=== PATIENT | male | born 1950 | race Caucasian/White ===

== ENCOUNTER 2017-11-02 11:02 | Inpatient (IN) | payer OTHER ==
[2017-11-02 11:11] VITALS: BMI 28.0
[2017-11-02] MEDS ORDERED: SODIUM CHLORIDE 0.9% 1000 ML INFUS.BAG IV STA (11:33)
[2017-11-02] MEDS ORDERED: ACETAMINOPHEN 1000 MG/100 ML VIAL (NON FORMULARY) IVPB ONE (11:33)
[2017-11-02] MEDS ORDERED: ACETAMINOPHEN INJECTION 100 ML IVPB ONE (12:01)
[2017-11-02] MEDS ORDERED: MEROPENEM 1 GM in DEXTROSE 5%-WATER 100 ML IVPB ONE (12:14)
[2017-11-02 12:15] LABS: BASO % 0.2 % (0-2.0); EOS % 0.2 % (0-4.5); HEMATOCRIT 43.1 % (35.4-49); HEMOGLOBIN 14.3 GM/dL (11.7-16.9); LYMPH % 4.7 % (8-40); MCH 28.3 pg (25.7-33.7); MCHC 33.3 g/dl (32.0-35.9); MEAN CELL VOLUME 85.2 fl (80-96); MEAN PLT VOLUME 9.6 fl (7.5-11.1); MONO % 6.6 % (3.8-10.2); NEUT % 88.3 % (42.8-82.8); PLATELET COUNT 162 K/MM3 (134-434); RBC 5.06 M/mm3 (4.00-5.60); RDW 13.6 % (11.9-15.9); WHITE BLOOD COUNT 11.9 K/mm3 (4.0-10.0)
[2017-11-02 12:20] LABS: URINE APPEARANCE Clear; URINE BILIRUBIN Negative (<2.0 mg/dL); URINE COLOR Yellow; URINE GLUCOSE (UA) Negative (NEGATIVE); URINE KETONE Negative (NEGATIVE); URINE LEUK ESTERASE Moderate (NEGATIVE); URINE NITRITE Negative (NEGATIVE); URINE PROTEIN Trace (NEGATIVE); URINE UROBILINOGEN 0.2 mg/dL (0.2-1.0)
--- NOTE | 2017-11-02 12:26 | PDOC ---
History of Present Illness <Pao Olson - Last Filed: 11/02/17 13:35> - General History Source: Patient Exam Limitations: No Limitations - History of Present Illness Initial Comments: 11/02/17 12:23 Patient is a 67M with history of prostate cancer s/p surgical removal here today complaining of 1 week of dysuria with 1 day of fevers/chills and left sided back pain. Patient's daughter reports rigors this morning which caused them to call an ambulance. Patient's daughter reports a history of ESBL UTI sensitive to meropenem and imipenem. Results were obtained from [facility] Urology fellow on-call at [phone]. Patient's daughter reports that the patient had a near syncopal episode from the rigors. <Robbi Harrington - Last Filed: 11/02/17 18:46> - General Chief Complaint: SIRS, Suspected/Possible Stated Complaint: FEVER Time Seen by Provider: 11/02/17 11:25 Past History <Pao Olson Satinder - Last Filed: 11/02/17 13:35> - Past Medical History Cancer: Yes (PROSTATE) COPD: No - Surgical History Abdominal Surgery: Yes (PROSTATECTOMY 08/25/17) - Suicide/Smoking/Psychosocial Hx Smoking History: Unknown if ever smoked <Robbi Harrington - Last Filed: 11/02/17 18:46> - Past Medical History Allergies/Adverse Reactions: Allergies Allergy/AdvReac Type Severity Reaction Status Date / Time No Known Allergies Allergy Verified 11/02/17 11:09 Home Medications: Ambulatory Orders Sildenafil Citrate [Sildenafil] 20 mg PO ASDIR 11/02/17 Review of Systems - Review of Systems Comments:: 11/02/17 12:32 GENERAL/CONSTITUTIONAL: +fever +chills. No weakness. HEAD, EYES, EARS, NOSE AND THROAT: No change in vision. No sore throat. CARDIOVASCULAR: No chest pain or shortness of breath RESPIRATORY: No cough, wheezing, or hemoptysis. GASTROINTESTINAL: +nausea, no vomiting, diarrhea or constipation. GENITOURINARY: +dysuria, +frequency MUSCULOSKELETAL: No joint or muscle swelling or pain. No neck pain, +left side pain SKIN: No rash NEUROLOGIC: No headache, vertigo, loss of consciousness, or change in strength/ sensation. ENDOCRINE: No increased thirst. No abnormal weight change HEMATOLOGIC/LYMPHATIC: No anemia, easy bleeding, or history of blood clots. ALLERGIC/IMMUNOLOGIC: No hives or skin allergy. <Robbi Harrington - Last Filed: 11/02/17 18:46> *Physical Exam - Vital Signs Last Vital Signs Temp Pulse Resp BP Pulse Ox 102.6 F H 96 H 18 142/72 99 11/02/17 11:45 11/02/17 12:51 11/02/17 12:51 11/02/17 12:51 11/02/17 12:51 <Pao Olson - Last Filed: 11/02/17 13:35> - Vital Signs Last Vital Signs Temp Pulse Resp BP Pulse Ox 102.6 F H 89 18 139/59 100 11/02/17 11:45 11/02/17 11:45 11/02/17 11:45 11/02/17 11:45 11/02/17 11:45 - Physical Exam Comments: 11/02/17 12:36 GENERAL: Awake, alert, and fully oriented, in no acute distress HEAD: No signs of trauma, normocephalic, atraumatic EYES: PERRLA, EOMI, sclera anicteric, conjunctiva clear ENT: Auricles normal inspection, hearing grossly normal, nares patent, oropharynx clear without exudates. Moist mucosa NECK: Normal ROM, supple, no lymphadenopathy, JVD, or masses LUNGS: No distress, speaks full sentences, clear to auscultation bilaterally HEART: Regular rate and rhythm, normal S1 and S2, no murmurs, rubs or gallops, peripheral pulses normal and equal bilaterally. ABDOMEN: Soft, +suprapubic tenderness, +l cva tenderness, normoactive bowel sounds. No guarding, no rebound. No masses EXTREMITIES: Normal inspection, Normal range of motion, no edema. No clubbing or cyanosis. NEUROLOGICAL: Cranial nerves II through XII grossly intact. Normal speech, no focal sensorimotor deficits SKIN: Warm, Dry, normal turgor, no rashes or lesions noted. <Robbi Harrington - Last Filed: 11/02/17 18:46> ED Treatment Course - LABORATORY CBC & Chemistry Diagram: 11/02/17 11:45 11/02/17 11:45 - ADDITIONAL ORDERS Additional order review: Laboratory Results 11/02/17 11/02/17 11/02/17 12:10 12:05 11:45 PT with INR INR PTT (Actin FS) Sodium Potassium Chloride Carbon Dioxide Anion Gap BUN Creatinine Creat Clearance w eGFR Random Glucose Lactic Acid 2.1 H Calcium Total Bilirubin AST ALT Alkaline Phosphatase Troponin I < 0.02 Total Protein Albumin Urine Color Yellow Urine Appearance Clear Urine pH 6.0 Ur Specific [place] 1.015 Urine Protein Trace Urine Glucose (UA) Negative Urine Ketones Negative Urine Blood Small Urine Nitrite Negative Urine Bilirubin Negative Urine Urobilinogen 0.2 Ur Leukocyte Esterase Moderate 11/02/17 11/02/17 11:45 11:45 PT with INR 12.10 INR 1.07 PTT (Actin FS) 26.4 Sodium 143 Potassium 3.9 Chloride 108 H Carbon Dioxide 23 Anion Gap 12 BUN 17 Creatinine 0.9 Creat Clearance w eGFR > 60 Random Glucose 141 H Lactic Acid Calcium 8.1 L Total Bilirubin 0.7 AST 16 ALT 36 Alkaline Phosphatase 111 Troponin I Total Protein 6.6 Albumin 3.2 L Urine Color Urine Appearance Urine pH Ur Specific [place] Urine Protein Urine Glucose (UA) Urine Ketones Urine Blood Urine Nitrite Urine Bilirubin Urine Urobilinogen Ur Leukocyte Esterase 11/02/17 11:45 RBC 5.06 MCV 85.2 MCHC 33.3 RDW 13.6 MPV 9.6 Neutrophils % 88.3 H Lymphocytes % 4.7 L Monocytes % 6.6 Eosinophils % 0.2 Basophils % 0.2 - RADIOLOGY Radiology Studies Ordered: Category Date Time Status CHEST X-RAY PORTABLE* [RAD] Stat Radiology 11/02/17 11:33 Completed - Medications Given in the ED: ED Medications Discontinued Medications Generic Name Dose Route Start Last Admin Trade Name Bandar PRN Reason Stop Dose Admin Acetaminophen 1,000 mg 11/02/17 11:33 11/02/17 11:45 Ofirmev Injection - IVPB 11/02/17 11:34 1,000 mg ONCE ONE Administration Morphine Sulfate 4 mg 11/02/17 12:47 11/02/17 13:15 Morphine Injection - IVPUSH 11/02/17 12:48 4 mg ONCE ONE Administration Sodium Chloride 2,150 ml 11/02/17 11:33 11/02/17 11:45 Normal Saline - 30 ml/kg (2150 ml) 11/02/17 11:34 2,150 ml IV Administration ONCE STA <Pao Olson - Last Filed: 11/02/17 13:35> - LABORATORY CBC & Chemistry Diagram: 11/02/17 11:45 11/02/17 11:45 - ADDITIONAL ORDERS Additional order review: 11/02/17 11:45 RBC 5.06 MCV 85.2 MCHC 33.3 RDW 13.6 MPV 9.6 Neutrophils % 88.3 H Lymphocytes % 4.7 L Monocytes % 6.6 Eosinophils % 0.2 Basophils % 0.2 <Robbi Harrington - Last Filed: 11/02/17 18:46> Medical Decision Making - Medical Decision Making 11/02/17 12:37 Patient is 67M with history of prostate cancer here today with suprapubic abdominal pain, dysuria, and left sided cva tenderness. Strongly suspect pyelonephritis. Septic workup initiated, HR here was taken after 1L of fluids from EMS. Given tylenol. Will treat with meropenem. UA+, CBC shows leukocytosis. CMP reassuring. Admitted by Dr Olson for pyelonephritis. <Robbi Harrington - Last Filed: 11/02/17 18:46> *DC/Admit/Observation/Transfer - Discharge Dispostion Decision to Admit order: Yes Decision to Admit order Date/Time: Decision to Admit Order Category Date Time Status Decision to Admit to Hospital Routine Admission 11/02/17 12:25 Active <Pao Olson - Last Filed: 11/02/17 13:35> <Robbi Harrington - Last Filed: 11/02/17 18:46> Diagnosis at time of Disposition: Sepsis, Pyelonephritis - Discharge Dispostion Condition at time of disposition: Guarded
[2017-11-02 12:31] LABS: INR 1.07 (0.83-1.09); PROTHROMBIN TIME (PATIENT) 12.1 SEC (9.7-13.0)
[2017-11-02 12:34] LABS: ACTIVATED PTT 26.4 SECONDS (25.2-36.5)
[2017-11-02 12:42] LABS: ALBUMIN 3.2 g/dl (3.4-5.0); ALK PHOS 111 U/L (45-117); ANION GAP 12 MMOL/L (8-16); BILIRUBIN,TOTAL 0.7 mg/dL (0.2-1.0); BLOOD UREA NITROGEN 17 mg/dL (7-18); CALCIUM 8.1 mg/dL (8.5-10.1); CHLORIDE 108 mmol/L (98-107); CO2 23 mmol/L (21-32); CREATININE 0.9 mg/dL (0.55-1.3); GLUCOSE,RANDOM 141 mg/dL (74-106); POTASSIUM 3.9 mmol/L (3.5-5.1); SGOT/AST 16 U/L (15-37); SGPT/ALT 36 U/L (13-61); SODIUM 143 mmol/L (136-145); TOT PROT 6.6 g/dl (6.4-8.2)
[2017-11-02] MEDS ORDERED: morphine CARPU-JECT 4 MG/1 ML DISP.SYRIN IVPUSH ONE (12:47)
--- NOTE | 2017-11-02 12:48 | PDOC ---
Attending Attestation - Resident Resident Name: Robbi Harrington - ED Attending Attestation I have performed the following: I have examined & evaluated the patient, The case was reviewed & discussed with the resident, I agree w/resident's findings & plan - HPI HPI: 11/02/17 13:33 Girish 67 YOM with a significant past medical history of ESBL UTI, prostate CA s /p resection, who presents to the emergency department with, 1 week of dysuria. The patient also endorses 1 day of fever and chills and pain radiating to his left side of his back. Last BM this morning, normal. He denies any recent headache or dizziness. He denies any recent nausea, vomit, diarrhea or constipation. He denies any recent chest pain or shortness of breath. He denies any recent frequency, urgency or hematuria. Allergies: NKA Past surgical history: Cholecystectomy and prostate resection. Primary Care Physician: Dr. Robbi Calles - Physicial Exam PE: 11/02/17 13:33 NAD, well appearing, MMM, nl conjunctiva, anicteric; neck supple. lungs clear, + mild tachycardia. Abdomen tympanic. Suprapubic tenderness. Left sided CVA tenderness. BOWENS x4, no focal neuro deficits. No peripheral edema. normal color for ethnicity, WWP. 11/02/17 13:33 - Medical Decision Making 11/02/17 12:52 I, Pao Olson MD, attest that this document has been prepared under my direction and personally reviewed by me in its entirety. I further attest, that it accurately reflects all work, treatment, procedures and medical decision -making performed by me Girish [place]oto YOM with H/o ESBL UTI, prostate CA s/p radical resection in August 2017 presenting with progressive dysuria x 1 week, today with fever and chills, increasing back and abdominal pain. Last UTI 1 month ago, which was ESBL. Vital signs reviewed, notable for fever 101.5, and mild tachycardia. Infection Plan: CBC, CMP, UA, urine cx, blood cx, lactic acid, ECG, trop, CXR. resuscitative IVF, antipyretics, analgesia, IV abx with Meropenem given prior sensitivities with ESBL Prior notes reviewed, including admissions, discharges and consultations. laboratory results and imaging reviewed, basic labs and lytes wnl, notable for + UA with WBCs and leuk esterase, clinically correlating with acute pyelonephritis. f/u blood and urine culture lactic mildly elevated 2.1, given fluids and will recheck after treatment. EKG normal sinus rhythm, no interval abnormalities, narrow QRS, ST and T wave segments and morphology normal. Nonspecific T wave abnormalities Dispo: Admit for suspected pyelonephritis.. Discussed results and management plan with pt and family member at bedside, agree with impression and plan 11/02/17 13:34 Heart Score/ECG Review - ECG Impressions Comment:: 11/02/17 12:53 EKG normal sinus rhythm at 93 bpm, no interval abnormalities, narrow QRS, ST and T wave segments and morphology normal. Nonspecific T wave abnormalities
[2017-11-02] MEDS ORDERED: morphine SULFATE 4 MG/ML VIAL ONE (13:04)
[2017-11-02] MEDS ORDERED: MORPHINE SULFATE 2 MG/ML VIAL IVPUSH PRN (13:47)
--- NOTE | 2017-11-02 14:29 | HP ---
CHIEF COMPLAINT:Pyelonephritis PCP: Robbi Calles HISTORY OF PRESENT ILLNESS: 67M with PMH of prostate Ca s/p radical prostatectomy in August of this year no chemo or radiation. Patient is considered cured. The Patient is Wallisian speaking and presents with his 2 daughter and 2 son-in-laws with a chief complaint of pyelonephritis. One of his daughters who is giving the history and doing the translating states she is a piano teacher. She states The patient had a UTI september 21, 2017 and was treated with one week of macrobid and symptoms resolved. Culture from [facility] [place] shows >100,000K CFU of E. Coli Sensitivities from daughter who called the fellow from [facility] [place] show it is ESBL sensitive to Imipenem, Meropenem, Amikacin and Macrobid. Patient's daughter states her father started having suprapubic pain about 1 week ago but he didn't tell anyone and has now progressed to back pain. Her father started having shaking chills this morning so she called the ambulabce. She states he started to get very anxious and started to have numbness and tingling in his fingers which quickly resolved. They endorse fever chills urinary urgency and increased frequency with back and suprapubic pain. During the H&P patient started complaining of chest pain. Vitals remained stable while on the monitor. He denies radiation or diaphoresis or palpitations. STAT EKG done which was unchanged from prior and WNL. He denies nausea vomiting cough shortness of breath or diarrhea. ER course was notable for: (1)Labs UA UCx BCx IVF (2)EKG (3)CXR Recent Travel:Denies PAST MEDICAL HISTORY:Prostate Ca PAST SURGICAL HISTORY:Radical prostatectomy cholecystectomy multiple skin lesion removals Social History: Smoking:Denies Alcohol:Denies Drugs: Denies Allergies No Known Allergies Allergy (Verified 11/02/17 11:09) HOME MEDICATIONS: Home Medications Medication Instructions Recorded Sildenafil Citrate [Sildenafil] 20 mg PO ASDIR 11/02/17 REVIEW OF SYSTEMS CONSTITUTIONAL: Absent: diaphoresis, malaise, loss of appetite, weight change Present: fever , chills, generalized weakness HEENT: Absent: rhinorrhea, nasal congestion, throat pain, throat swelling, difficulty swallowing, mouth swelling, ear pain, eye pain, visual changes CARDIOVASCULAR: Absent: syncope, palpitations, irregular heart rate, lightheadedness, peripheral edema Present:chest pain RESPIRATORY: Absent: cough, shortness of breath, orthopnea, wheezing, stridor, hemoptysis Present:decreased exercise tolerance GASTROINTESTINAL: Absent: abdominal pain, nausea, vomiting, diarrhea, constipation, melena, hematochezia Present: abdominal distention GENITOURINARY: Absent: hesitancy, hematuria, genital pain Present:dysuria, frequency, urgency , flank pain MUSCULOSKELETAL: Absent: myalgia, arthralgia, joint swelling, back pain, neck pain SKIN: Absent: rash, itching, pallor HEMATOLOGIC/IMMUNOLOGIC: Absent: easy bleeding, easy bruising, lymphadenopathy, frequent infections ENDOCRINE: Absent: unexplained weight gain, unexplained weight loss, heat intolerance, cold intolerance NEUROLOGIC: Absent: headache, focal weakness or paresthesias, dizziness, unsteady gait, seizure, mental status changes, bladder or bowel incontinence PSYCHIATRIC: Absent: anxiety, depression, suicidal or homicidal ideation, hallucinations. PHYSICAL EXAMINATION Vital Signs - 24 hr 11/02/17 11/02/17 11/02/17 11:05 11:45 12:30 Temperature 101.5 F H 102.6 F H Pulse Rate 95 H Pulse Rate [ 89 93 H Right] Respiratory 20 18 20 Rate Blood Pressure 134/79 Blood Pressure 139/59 139/77 [Right] O2 Sat by Pulse 99 100 93 L Oximetry (%) 11/02/17 11/02/17 12:51 14:14 Temperature 101.9 F H Pulse Rate Pulse Rate [ 96 H 88 Right] Respiratory 18 19 Rate Blood Pressure Blood Pressure 142/72 135/74 [Right] O2 Sat by Pulse 99 100 Oximetry (%) GENERAL: Awake, alert, and fully oriented, in no acute distress. HEAD: Normal with no signs of trauma. EYES: Pupils equal, round and reactive to light, extraocular movements intact, sclera anicteric EARS, NOSE, THROAT: Dry mucous membranes. NECK: no JVD appreciated LUNGS: clear on the right. Left side sound louder and has faint crackles at the bases HEART: Regular rate and rhythm, normal S1 and S2 soft 2/6 murmur LUSB ABDOMEN: Soft, nontender abdomen, normoactive bowel sounds. mildly Distended. Suprapubic tenderness. MUSCULOSKELETAL: bilateral CVA tenderness L>R UPPER EXTREMITIES: warm, well-perfused. No peripheral edema. LOWER EXTREMITIES: warm, well-perfused. No calf tenderness. No peripheral edema. NEUROLOGICAL: Cranial nerves II-XII intact. SKIN: Hot Laboratory Results - last 24 hr 11/02/17 11/02/17 11/02/17 11:45 11:45 11:45 WBC 11.9 H RBC 5.06 Hgb 14.3 Hct 43.1 MCV 85.2 MCH 28.3 MCHC 33.3 RDW 13.6 Plt Count 162 MPV 9.6 Absolute Neuts (auto) 10.5 H Neutrophils % 88.3 H Lymphocytes % 4.7 L Monocytes % 6.6 Eosinophils % 0.2 Basophils % 0.2 Nucleated RBC % 0 PT with INR 12.10 INR 1.07 PTT (Actin FS) 26.4 Sodium 143 Potassium 3.9 Chloride 108 H Carbon Dioxide 23 Anion Gap 12 BUN 17 Creatinine 0.9 Creat Clearance w eGFR > 60 Random Glucose 141 H Lactic Acid Calcium 8.1 L Total Bilirubin 0.7 AST 16 ALT 36 Alkaline Phosphatase 111 Troponin I Total Protein 6.6 Albumin 3.2 L Urine Color Urine Appearance Urine pH Ur Specific [place] Urine Protein Urine Glucose (UA) Urine Ketones Urine Blood Urine Nitrite Urine Bilirubin Urine Urobilinogen Ur Leukocyte Esterase 11/02/17 11/02/17 11/02/17 11:45 12:05 12:10 WBC RBC Hgb Hct MCV MCH MCHC RDW Plt Count MPV Absolute Neuts (auto) Neutrophils % Lymphocytes % Monocytes % Eosinophils % Basophils % Nucleated RBC % PT with INR INR PTT (Actin FS) Sodium Potassium Chloride Carbon Dioxide Anion Gap BUN Creatinine Creat Clearance w eGFR Random Glucose Lactic Acid 2.1 H Calcium Total Bilirubin AST ALT Alkaline Phosphatase Troponin I < 0.02 Total Protein Albumin Urine Color Yellow Urine Appearance Clear Urine pH 6.0 Ur Specific [place] 1.015 Urine Protein Trace Urine Glucose (UA) Negative Urine Ketones Negative Urine Blood Small Urine Nitrite Negative Urine Bilirubin Negative Urine Urobilinogen 0.2 Ur Leukocyte Esterase Moderate 11/02/17 13:00 WBC RBC Hgb Hct MCV MCH MCHC RDW Plt Count MPV Absolute Neuts (auto) Neutrophils % Lymphocytes % Monocytes % Eosinophils % Basophils % Nucleated RBC % PT with INR INR PTT (Actin FS) Sodium Potassium Chloride Carbon Dioxide Anion Gap BUN Creatinine Creat Clearance w eGFR Random Glucose Lactic Acid 1.4 Calcium Total Bilirubin AST ALT Alkaline Phosphatase Troponin I Total Protein Albumin Urine Color Urine Appearance Urine pH Ur Specific [place] Urine Protein Urine Glucose (UA) Urine Ketones Urine Blood Urine Nitrite Urine Bilirubin Urine Urobilinogen Ur Leukocyte Esterase EKG: NSR CXR: Clear ASSESSMENT/PLAN: 67M with history of prostate Ca s/p radical prostatectomy presents with symptomatic UTI and pyelonephritis. sepsis secondary to Pyelonephritis: UA moderate LE given history of ESBL one month ago treated with macrobid and his symptoms or urgency frequency suprapubic pain and back pain with CVA tenderness suprapubic tenderness fevers and chills will have to treat for ESBL UTI UCx sent will follow BCx sent to rule out bacteremia will follow Will start the patient on meropenem consult ID-spoke to Dr. Kolb antipyretics pain control IVF patient dehydrated with dark urine. Made 200ml urine after 2500ml crystalloids Atypical chest pain: STAT EKG did not show any acute changes compared to one done a few hours prior on admission to the ER Will trend troponins Patient not hypoxic saturation of 77% likely from SpO2 sensor not being on the finger properly as per nurse saturation came back to 100% within a few seconds if patient desaturates will have to consider CTA to rule out PE given his history Protonix Lactic acidosis: 2.1 repeated and now 1.4 with IVF Prostate Ca s/p radical prostatectomy considered cured per daughter can follow up with his doctors at [facility] [place] Erectile Dysfunction: as a complication of radiacl prostatectomy hold sildenafil for now FEN: NS @ 100ml/hr No electrolyte issues will trend regular diet PPx: HSQ/SCDs Protonix PT consult Case discussed with Dr. Sorensen Visit type - Emergency Visit Emergency Visit: Yes ED Registration Date: 11/02/17 Care time: The patient presented to the Emergency Department on the above date and was hospitalized for further evaluation of their emergent condition. - New Patient This patient is new to me today: Yes Date on this admission: 11/02/17 - Critical Care Critical Care patient: No Hospitalist Screening - Colonoscopy Questionnaire Colonoscopy Questionnaire: Colonoscopy Questionnaire - Patient: 50 - 75 years old and never had a screening colonoscopy: No History of colon or rectal polyps, or CA: No History of IBD, Crohn's disease or UC: No History of abdominal radiation therapy as a child: No - Relative: 1 with colon or rectal CA, or polyps at age 60 or younger: No Colon or rectal CA diagnosed at age 45 or younger: No Multiple relatives with colon or rectal CA: No - Outcome: Screening Result: Negative Screen
[2017-11-02] MEDS: SODIUM CHLORIDE 1,000 ML IV SCH (14:37)
[2017-11-02] MEDS ORDERED: ACETAMINOPHEN 500 MG TABLET (FP) PO PRN (14:43)
--- NOTE | 2017-11-02 14:52 | PN ---
Teaching Attending Note Name of Resident: Thomas Busch ATTENDING PHYSICIAN STATEMENT I saw and evaluated the patient. I reviewed the resident's note and discussed the case with the resident. I agree with the resident's findings and plan as documented. SUBJECTIVE: This is a 67 year old man with a history of prostate cancer, prostatectomy who comes to the ED complaining of suprapubic and back pain, fever , chills, urinary frequency. He was recently treated with Macrobid a UTI. Urine culture grew ESBL (+) E. coli. He developed suprapubic pain about 1 week ago which has worsened and now is also in his back. This morning, he had shaking chills, so family called EMS. OBJECTIVE: Vital Signs Period Temp Pulse Resp BP Sys/Mitchell Pulse Ox Last 24 Hr 101.5 F-102.6 F 88-96 18-20 134-142/59-79 93-100 HEART: S1S2, tachycardic LUNGS: Clear ABDOMEN: Soft, non-tender, mild distention, normal BS, (+) left CVA tenderness EXTREMITIES: No edema Laboratory Tests 11/02/17 11/02/17 11/02/17 11:45 11:45 11:45 WBC 11.9 H RBC 5.06 Hgb 14.3 Hct 43.1 MCV 85.2 MCH 28.3 MCHC 33.3 RDW 13.6 Plt Count 162 MPV 9.6 Absolute Neuts (auto) 10.5 H Neutrophils % 88.3 H Lymphocytes % 4.7 L Monocytes % 6.6 Eosinophils % 0.2 Basophils % 0.2 Nucleated RBC % 0 PT with INR 12.10 INR 1.07 PTT (Actin FS) 26.4 Sodium 143 Potassium 3.9 Chloride 108 H Carbon Dioxide 23 Anion Gap 12 BUN 17 Creatinine 0.9 Creat Clearance w eGFR > 60 Random Glucose 141 H Lactic Acid Calcium 8.1 L Total Bilirubin 0.7 AST 16 ALT 36 Alkaline Phosphatase 111 Troponin I Total Protein 6.6 Albumin 3.2 L Urine Color Urine Appearance Urine pH Ur Specific [place] Urine Protein Urine Glucose (UA) Urine Ketones Urine Blood Urine Nitrite Urine Bilirubin Urine Urobilinogen Ur Leukocyte Esterase 11/02/17 11/02/17 11/02/17 11:45 12:05 12:10 WBC RBC Hgb Hct MCV MCH MCHC RDW Plt Count MPV Absolute Neuts (auto) Neutrophils % Lymphocytes % Monocytes % Eosinophils % Basophils % Nucleated RBC % PT with INR INR PTT (Actin FS) Sodium Potassium Chloride Carbon Dioxide Anion Gap BUN Creatinine Creat Clearance w eGFR Random Glucose Lactic Acid 2.1 H Calcium Total Bilirubin AST ALT Alkaline Phosphatase Troponin I < 0.02 Total Protein Albumin Urine Color Yellow Urine Appearance Clear Urine pH 6.0 Ur Specific [place] 1.015 Urine Protein Trace Urine Glucose (UA) Negative Urine Ketones Negative Urine Blood Small Urine Nitrite Negative Urine Bilirubin Negative Urine Urobilinogen 0.2 Ur Leukocyte Esterase Moderate 11/02/17 13:00 WBC RBC Hgb Hct MCV MCH MCHC RDW Plt Count MPV Absolute Neuts (auto) Neutrophils % Lymphocytes % Monocytes % Eosinophils % Basophils % Nucleated RBC % PT with INR INR PTT (Actin FS) Sodium Potassium Chloride Carbon Dioxide Anion Gap BUN Creatinine Creat Clearance w eGFR Random Glucose Lactic Acid 1.4 Calcium Total Bilirubin AST ALT Alkaline Phosphatase Troponin I Total Protein Albumin Urine Color Urine Appearance Urine pH Ur Specific [place] Urine Protein Urine Glucose (UA) Urine Ketones Urine Blood Urine Nitrite Urine Bilirubin Urine Urobilinogen Ur Leukocyte Esterase Home Medications Medication Instructions Recorded Sildenafil Citrate [Sildenafil] 20 mg PO ASDIR 11/02/17 ASSESSMENT AND PLAN: This is a 67 year old man with a history of prostate cancer, prostatectomy, recent UTI who presented to the ED with suprapubic and back pain, fever, chills , urinary frequency. 1. Sepsis secondary to acute pyelonephritis - Recently treated for ESBL (+) E. coli UTI with Macrobid - Merrem given in ED - IV fluid - Lactic acid improved with IV fluid - Follow up urine, blood cultures - ID consult 2. Prostate cancer, history of radical prostatectomy
--- NOTE | 2017-11-02 15:54 | PN ---
Progress Note (short form) - Note Progress Note: ID consult dictated imp/reccd 67 year old man recent radical prostatectomy in August, s/p esbl uti in September treated with 7 days of Macrobid now with one week of suprapubic pain and decreased urine outpt- fevers with chills and rigors today sepsis secondary to UTI febrile with +UA in ED no cough no other comorbidities history of nephrolithiasis 10 years ago NKDA agree with plan to continue IVF continue meropenem would obtain bladder/renal sonogram to r/o obstruction continue contact isolation d/w hospitalist Problem List - Problems (1) Sepsis Code(s): A41.9 - SEPSIS, UNSPECIFIED ORGANISM (2) UTI (urinary tract infection) Code(s): N39.0 - URINARY TRACT INFECTION, SITE NOT SPECIFIED (3) History of ESBL E. coli infection Code(s): Z86.19 - PERSONAL HISTORY OF OTHER INFECTIOUS AND PARASITIC DISEASES (4) H/O prostatectomy Code(s): Z90.79 - ACQUIRED ABSENCE OF OTHER GENITAL ORGAN(S)
[2017-11-02] MEDS ORDERED: MEROPENEM 1 GM in DEXTROSE 5%-WATER - 100 ML IVPB SCH (18:00)
[2017-11-02] MEDS: MEROPENEM 1 GM in DEXTROSE 5%-WATER 100 ML IVPB SCH (18:56)
--- NOTE | 2017-11-02 20:52 | CONS ---
DATE OF CONSULTATION: DATE OF DICTATION: 11/02/2017 INFECTIOUS DISEASE CONSULTATION REQUESTING PHYSICIAN: Hospitalist Service CONSULTING PHYSICIAN: Nicolette Traore M.D. HISTORY OF PRESENT ILLNESS: This is a 67-year-old man who just underwent a radical prostatectomy in August of this year at [facility]. He had no history of UTI prior to that. In September of this year, he developed an E. coli ESBL UTI for which he was treated for 7 days with Macrobid. His daughter called [facility] and got sensitivities for us, and it is sensitive to imipenem, meropenem, amikacin and Macrobid. About a week ago, he started having suprapubic pain that he did not tell anyone about. He started taking Advil at home for his discomfort. His daughter thinks he had apparently had diminished urine output because he was wearing Depends for incontinence and he told her yesterday that he did not think he needed to wear them anymore. They deny any nausea or vomiting. They say he has been eating okay. He has no headache. He has no chest pain. He has no cough. He has no shortness of breath or abdominal pain. He had a fever in the emergency room and was started on meropenem after cultures were obtained, given his prior history. There is no history of any recent travel, given all this illness. They have no pets. He alternates his living time between his two daughters. His medical history is notable for prostate cancer, surgical history for the radical prostatectomy and cholecystectomy. SOCIAL HISTORY: There is no history of any cigarette or substance use. FAMILY HISTORY: He is one of 24 children. He is originally from . There is a family history of diabetes. ALLERGIES: He has no known drug allergies. MEDICATION: The daughter reports to me that he takes no medications, although sildenafil has been listed in the chart as a medication he is taking. REVIEW OF SYSTEMS: Notable for fevers, chills, weakness, diminished urine output. He has apparently been having low back pain and some abdominal distention. He has not had any flank pain. PHYSICAL EXAMINATION: VITAL SIGNS: T-max is 102.6, currently 101.9. Pulse of 88, blood pressure 135/74, respiratory rate 19. He is saturating 100%. He has gotten 2 L of fluid and the daughter reports he has made about 500 mL of urine. GENERAL: He is awake and alert, in no acute distress. HEENT: Normocephalic. Eyes are anicteric. NECK: Supple. He has no thrush, adenopathy or pharyngitis. LUNGS: Clear to auscultation. HEART: Regular rate and rhythm. He has a 2/6 systolic ejection murmur. ABDOMEN: Soft, mildly distended, nontender. He has no palpable bladder. He has no CVA tenderness. He apparently had some morphine in the ER and now has no low back pain. EXTREMITIES: Without edema. He has no rash. LABORATORY: White count is 11.9, hemoglobin 14.3, platelets 162, INR 1. BUN and creatinine are 17 and 0.9. LFTs are normal. Urinalysis is negative. Blood and urine cultures are pending. Chest x-ray is negative for infiltrate. IMPRESSION: In summary, this is a 66-year-old man who had a prostatectomy in August with an extended-spectrum beta-lactamases urinary tract infection in September, now admitted with sepsis secondary to urinary tract infection. He has lactic acidosis as well. He is febrile with a positive urinalysis. No cough, no other comorbidities. History of nephrolithiasis. Would agree with plan to continue fluids, continue meropenem. Would obtain a bladder renal sonogram to rule out obstruction and continue contact isolation. The case was discussed with the daughters who were at the bedside. The case was discussed with Dr. Busch, the hospitalist. We have ordered a renal bladder sonogram. Will follow the patient with you. His problem list includes sepsis, UTI, a history of ESBL E. coli, and a history of prostatectomy. NICOLETTE TRAORE M.D. [id number]
[2017-11-02] MEDS: HEPARIN NA (PORCINE) 5,000 UNITS/ML 1ML VIAL SQ SCH (21:42)
[2017-11-03] MEDS: MEROPENEM 1 GM in DEXTROSE 5%-WATER 100 ML IVPB SCH ×3 (01:14→17:28)
[2017-11-03] MEDS: HEPARIN NA (PORCINE) 5,000 UNITS/ML 1ML VIAL SQ SCH ×3 (06:27→22:17)
[2017-11-03 08:12] LABS: BASO % 0.4 % (0-2.0); EOS % 0.3 % (0-4.5); HEMATOCRIT 39.9 % (35.4-49); HEMOGLOBIN 13.2 GM/dL (11.7-16.9); LYMPH % 11.2 % (8-40); MCH 28.3 pg (25.7-33.7); MCHC 33.2 g/dl (32.0-35.9); MEAN CELL VOLUME 85.2 fl (80-96); MEAN PLT VOLUME 9.7 fl (7.5-11.1); MONO % 8.9 % (3.8-10.2); NEUT % 79.2 % (42.8-82.8); PLATELET COUNT 138 K/MM3 (134-434); RBC 4.68 M/mm3 (4.00-5.60); RDW 13.7 % (11.9-15.9); WHITE BLOOD COUNT 14.6 K/mm3 (4.0-10.0)
--- NOTE | 2017-11-03 08:26 | PN ---
Progress Note, Physician - Current Medication List Current Medications: Active Medications Acetaminophen (Tylenol -) 1,000 mg PO Q6H PRN PRN Reason: PAIN OR FEVER Heparin Sodium (Porcine) (Heparin -) 5,000 unit SQ TID [facility] Last Admin: 11/03/17 06:27 Dose: 5,000 unit Sodium Chloride (Normal Saline -) 1,000 mls @ 100 mls/hr IV ASDIR [facility] Last Admin: 11/02/17 14:37 Dose: 100 mls/hr Meropenem 1 gm/ Dextrose 100 mls @ 200 mls/hr IVPB Q8H-IV [facility] Last Admin: 11/03/17 01:14 Dose: 200 mls/hr Morphine Sulfate (Morphine Sulfate) 2 mg IVPUSH Q4H PRN PRN Reason: PAIN LEVEL 6-10 Pneumococcal 13-Valent Conj Vacc (Prevnar 13 Syringe -) 0.5 ml IM .ONCE ONE Stop: 11/03/17 10:01 - Objective Vital Signs: Vital Signs Temperature 98.2 F 11/03/17 07:27 Pulse Rate 75 11/03/17 07:27 Respiratory Rate 18 11/02/17 21:45 Blood Pressure 119/68 11/03/17 07:27 O2 Sat by Pulse Oximetry (%) 97 11/02/17 21:46 Constitutional: Yes: Well Nourished, No Distress, Calm Eyes: Yes: WNL, Conjunctiva Clear, EOM Intact HENT: Yes: WNL, Atraumatic, Normocephalic Neck: Yes: WNL, Supple, Trachea Midline Cardiovascular: Yes: WNL, Regular Rate and Rhythm, S1, S2 Respiratory: Yes: Regular, CTA Bilaterally Gastrointestinal: Yes: WNL, Normal Bowel Sounds, Soft Musculoskeletal: Yes: WNL Extremities: Yes: WNL Labs: INR, PTT INR 1.07 (0.83-1.09) 11/02/17 11:45 Assessment/Plan 1. SIRS with Sepsis secondary to acute pyelonephritis with ESBL - Merrem given in ED - IV fluid - Follow up urine, blood cultures - ID consult 2. Prostate cancer, history of radical prostatectomy
[2017-11-03 08:55] LABS: ALBUMIN 2.7 g/dl (3.4-5.0); ANION GAP 8 MMOL/L (8-16); BLOOD UREA NITROGEN 14 mg/dL (7-18); CALCIUM 7.8 mg/dL (8.5-10.1); CHLORIDE 109 mmol/L (98-107); CO2 24 mmol/L (21-32); GLUCOSE,RANDOM 87 mg/dL (74-106); MAGNESIUM 1.9 mg/dL (1.8-2.4); POTASSIUM 3.9 mmol/L (3.5-5.1); SODIUM 141 mmol/L (136-145)
[2017-11-03 08:59] LABS: ALK PHOS 183 U/L (45-117); BILIRUBIN,TOTAL 0.7 mg/dL (0.2-1.0); CREATININE 0.8 mg/dL (0.55-1.3); PHOSPHOROUS 2.7 mg/dL (2.5-4.9); SGOT/AST 196 U/L (15-37); SGPT/ALT 272 U/L (13-61); TOT PROT 5.9 g/dl (6.4-8.2)
[2017-11-03] MEDS ORDERED: PNEUMOC 13-VAL CONJ-DIP CRM/PF 0.5 ML DISP.SYRIN IM ONE (10:00)
--- NOTE | 2017-11-03 13:27 | PN ---
Progress Note, Physician History of Present Illness: OOB in chair No complaints No c/o pain No fever/ chills Temps down today BC (-) Urine c/s LF - Current Medication List Current Medications: Active Medications Acetaminophen (Tylenol -) 1,000 mg PO Q6H PRN PRN Reason: PAIN OR FEVER Heparin Sodium (Porcine) (Heparin -) 5,000 unit SQ TID [facility] Last Admin: 11/03/17 06:27 Dose: 5,000 unit Sodium Chloride (Normal Saline -) 1,000 mls @ 100 mls/hr IV ASDIR [facility] Last Admin: 11/02/17 14:37 Dose: 100 mls/hr Meropenem 1 gm/ Dextrose 100 mls @ 200 mls/hr IVPB Q8H-IV [facility] Last Admin: 11/03/17 09:44 Dose: 200 mls/hr Morphine Sulfate (Morphine Sulfate) 2 mg IVPUSH Q4H PRN PRN Reason: PAIN LEVEL 6-10 - Objective Vital Signs: Vital Signs Temperature 98.2 F 11/03/17 07:27 Pulse Rate 75 11/03/17 07:27 Respiratory Rate 18 11/02/17 21:45 Blood Pressure 119/68 11/03/17 07:27 O2 Sat by Pulse Oximetry (%) 97 11/02/17 21:46 Constitutional: Yes: No Distress Eyes: Yes: Conjunctiva Clear Cardiovascular: Yes: Regular Rate and Rhythm Respiratory: Yes: CTA Bilaterally Gastrointestinal: Yes: Soft. No: Tenderness Labs: CBC, BMP 11/03/17 07:00 11/03/17 07:00 INR, PTT INR 1.07 (0.83-1.09) 11/02/17 11:45 Assessment/Plan UTI LF Hx ESBL S/P prostatectomy Await c/s Continue meropenem
[2017-11-03] MEDS: SODIUM CHLORIDE 1,000 ML IV SCH (14:47)
[2017-11-03] MEDS ORDERED: PT OWN MED DRAWER 7, Y5N ONE (17:25)
[2017-11-04] MEDS ORDERED: PT OWN MED DRAWER 7, Y5N ONE (01:14)
[2017-11-04] MEDS: MEROPENEM 1 GM in DEXTROSE 5%-WATER 100 ML IVPB SCH ×3 (01:20→17:09)
[2017-11-04] MEDS: SODIUM CHLORIDE 1,000 ML IV SCH ×2 (06:12→17:09)
[2017-11-04] MEDS: HEPARIN NA (PORCINE) 5,000 UNITS/ML 1ML VIAL SQ SCH ×3 (06:13→22:10)
[2017-11-04 07:45] LABS: BASO % 0.4 % (0-2.0); EOS % 1.4 % (0-4.5); HEMATOCRIT 40.1 % (35.4-49); HEMOGLOBIN 13.5 GM/dL (11.7-16.9); LYMPH % 13.5 % (8-40); MCH 28.4 pg (25.7-33.7); MCHC 33.8 g/dl (32.0-35.9); MEAN CELL VOLUME 84.3 fl (80-96); MEAN PLT VOLUME 9.6 fl (7.5-11.1); MONO % 10.3 % (3.8-10.2); NEUT % 74.4 % (42.8-82.8); PLATELET COUNT 168 K/MM3 (134-434); RBC 4.76 M/mm3 (4.00-5.60); RDW 13.8 % (11.9-15.9); WHITE BLOOD COUNT 10.7 K/mm3 (4.0-10.0)
[2017-11-04 08:30] LABS: ALBUMIN 2.8 g/dl (3.4-5.0); ANION GAP 7 MMOL/L (8-16); BLOOD UREA NITROGEN 11 mg/dL (7-18); CALCIUM 8.1 mg/dL (8.5-10.1); CHLORIDE 110 mmol/L (98-107); CO2 26 mmol/L (21-32); CREATININE 0.8 mg/dL (0.55-1.3); GLUCOSE,RANDOM 107 mg/dL (74-106); POTASSIUM 4.1 mmol/L (3.5-5.1); SGOT/AST 68 U/L (15-37); SGPT/ALT 165 U/L (13-61); SODIUM 143 mmol/L (136-145)
[2017-11-04 08:32] LABS: ALK PHOS 153 U/L (45-117); BILIRUBIN,TOTAL 0.4 mg/dL (0.2-1.0); TOT PROT 5.9 g/dl (6.4-8.2)
--- NOTE | 2017-11-04 09:27 | CONSULT ---
Consult - text type - Consultation Consultation Note: Renal Consult for Renal Cysts This is a 67 year old gentleman with Hx of prostate ca s/p prostate resection w/o radiation or chemotherapy, diverticulosis who presented UTI/ Pylonephritis and found to have multilple cysts on both kidneys. History obtained from daughter. Denies having been told that he had cysts in the past. No gross hematuira. No flank pain. No CP, SOB, N/V/D, Fever, chills at the present time. PMhx: as above Allergies: NKDA Family Hx: NC Social hx: no T/A/D ROS: as per HPI, all other pertinent ros negative Home Medications Medication Instructions Recorded Sildenafil Citrate [Sildenafil] 20 mg PO ASDIR 11/02/17 Vital Signs Temperature 98.2 F 11/04/17 08:59 Pulse Rate 63 11/04/17 08:59 Respiratory Rate 20 11/04/17 08:59 Blood Pressure 129/79 11/04/17 08:59 O2 Sat by Pulse Oximetry (%) 96 11/04/17 08:59 Intake & Output 11/01/17 11/02/17 11/03/17 11/04/17 23:59 23:59 23:59 23:59 Intake Total 3000 1700 1300 Output Total 200 Balance 2800 1700 1300 Weight 71.668 kg NAD awake and alert Neck supple, no JVD RRR, no M/R CTA, no rales soft NT/ND no flank pain No LE edmea, clubbing or cyanosis CBC, BMP 11/04/17 07:20 11/04/17 07:20 Current Medications Acetaminophen (Tylenol -) 1,000 mg PO Q6H PRN PRN Reason: PAIN OR FEVER Heparin Sodium (Porcine) (Heparin -) 5,000 unit SQ TID [facility] Last Admin: 11/04/17 06:13 Dose: 5,000 unit Sodium Chloride (Normal Saline -) 1,000 mls @ 100 mls/hr IV ASDIR [facility] Last Admin: 11/04/17 06:12 Dose: 100 mls/hr Meropenem 1 gm/ Dextrose 100 mls @ 200 mls/hr IVPB Q8H-IV [facility] Last Admin: 11/04/17 09:24 Dose: 200 mls/hr Morphine Sulfate (Morphine Sulfate) 2 mg IVPUSH Q4H PRN PRN Reason: PAIN LEVEL 6-10 67 year old gentleman with Hx of prostate ca s/p prostate resection w/ o radiation or chemotherapy, diverticulosis who presented UTI/Pylonephritis and found to have multilple cysts on both kidneys. #Acquired Renal Cystic Disease #UTI/Cystitis #Prostate Ca s/p recent resection US showed Cysts with septations, CT done offical read pending but images show multiple cysts b/l largest on left but cysts appear not to have blood supply within them and regular borders making them most likely simple cyts. Will await offical read by radiology. Continue Abx as per ID, f/u cultures Supportive care Spoke with daughter over the phone Thank you Mor Frias DO
--- NOTE | 2017-11-04 10:26 | PN ---
Progress Note, Physician Chief Complaint: Remained afebrile, no c/o nausea or vomiting - Current Medication List Current Medications: Active Medications Acetaminophen (Tylenol -) 1,000 mg PO Q6H PRN PRN Reason: PAIN OR FEVER Heparin Sodium (Porcine) (Heparin -) 5,000 unit SQ TID [facility] Last Admin: 11/04/17 06:13 Dose: 5,000 unit Sodium Chloride (Normal Saline -) 1,000 mls @ 100 mls/hr IV ASDIR [facility] Last Admin: 11/04/17 06:12 Dose: 100 mls/hr Meropenem 1 gm/ Dextrose 100 mls @ 200 mls/hr IVPB Q8H-IV [facility] Last Admin: 11/04/17 09:24 Dose: 200 mls/hr Morphine Sulfate (Morphine Sulfate) 2 mg IVPUSH Q4H PRN PRN Reason: PAIN LEVEL 6-10 - Objective Vital Signs: Vital Signs Temperature 98.2 F 11/04/17 08:59 Pulse Rate 63 11/04/17 08:59 Respiratory Rate 20 11/04/17 08:59 Blood Pressure 129/79 11/04/17 08:59 O2 Sat by Pulse Oximetry (%) 96 11/04/17 08:59 GENERAL: Young man No Distress, remained afebrile HEENT: MM moist, Conjunctiva Clear, EOM Intact Neck: Supple, Trachea Midline Cardiovascular: Regular Rate and Rhythm, S1, S2 no m/g/r Respiratory: Regular, CTA Bilaterally Gastrointestinal: No suprapubic pain , Normal Bowel Sounds, Soft Musculoskeletal & Extremities: No Edema feet no calf tenderness , Pulses + no CVA tenderness Neurological: Alert, Oriented non focal Labs: CBC, BMP 11/04/17 07:20 11/04/17 07:20 INR, PTT INR 1.07 (0.83-1.09) 11/02/17 11:45 Microbiology 11/02/17 12:05 Blood Culture - Preliminary Blood - Peripheral Venous NO GROWTH OBTAINED AFTER 24 HOURS, INCUBATION TO CONTINUE FOR 4 DAYS. 11/02/17 11:45 Blood Culture - Preliminary Blood - Peripheral Venous NO GROWTH OBTAINED AFTER 24 HOURS, INCUBATION TO CONTINUE FOR 4 DAYS. 11/02/17 12:10 Urine Culture - Preliminary Urine - Urine Clean Catch Lactose Fermenting Neg Bacilli Problem List - Problems (1) Sepsis Assessment/Plan: Due to acute Pyelonephritis H/O ESBL E Colli , ID on the board cont Meropenem U Culture grew Fermenters GNB sensitivity is [facility] Code(s): A41.9 - SEPSIS, UNSPECIFIED ORGANISM (2) Pyelonephritis Assessment/Plan: Acute cont Merpenem F/U final sensitivity prelim Grew GNB inventory auditor Code(s): N12 - TUBULO-INTERSTITIAL NEPHRITIS, NOT SPCF ACUTE OR CHRONIC (3) CA of prostate Assessment/Plan: S/P resection and RT in remission Code(s): C61 - MALIGNANT NEOPLASM OF PROSTATE (4) Renal cyst Assessment/Plan: No active intervention F/U clinically as out patient. Code(s): N28.1 - CYST OF KIDNEY, ACQUIRED
--- NOTE | 2017-11-04 22:05 | EKG ---
Test Reason : Blood Pressure : / mmHG Vent. Rate : 092 BPM Atrial Rate : 092 BPM P-R Int : 134 ms QRS Dur : 078 ms QT Int : 342 ms P-R-T Axes : 040 -05 016 degrees QTc Int : 422 ms NORMAL SINUS RHYTHM MINIMAL VOLTAGE CRITERIA FOR LVH, MAY BE NORMAL VARIANT BORDERLINE ECG NO PREVIOUS ECGS AVAILABLE Confirmed by SHAYNA CORDERO MD ([id number]) on 11/04/2017 10:04:53 PM Referred By: Confirmed By:SHAYNA CORDERO MD
[2017-11-05] MEDS ORDERED: PT OWN MED DRAWER 7, Y5N ONE (02:44)
[2017-11-05] MEDS: MEROPENEM 1 GM in DEXTROSE 5%-WATER 100 ML IVPB SCH ×2 (02:58→09:12)
[2017-11-05] MEDS: HEPARIN NA (PORCINE) 5,000 UNITS/ML 1ML VIAL SQ SCH ×2 (06:56→13:16)
[2017-11-05 07:05] LABS: BASO % 0.3 % (0-2.0); EOS % 2.8 % (0-4.5); HEMATOCRIT 40.1 % (35.4-49); HEMOGLOBIN 13.3 GM/dL (11.7-16.9); LYMPH % 19.5 % (8-40); MCH 28.1 pg (25.7-33.7); MCHC 33.1 g/dl (32.0-35.9); MEAN CELL VOLUME 84.9 fl (80-96); MEAN PLT VOLUME 9.5 fl (7.5-11.1); MONO % 14.1 % (3.8-10.2); NEUT % 63.3 % (42.8-82.8); PLATELET COUNT 190 K/MM3 (134-434); RBC 4.72 M/mm3 (4.00-5.60); RDW 13.3 % (11.9-15.9); WHITE BLOOD COUNT 7.1 K/mm3 (4.0-10.0)
[2017-11-05 07:19] LABS: ANION GAP 7 MMOL/L (8-16); BLOOD UREA NITROGEN 12 mg/dL (7-18); CALCIUM 8.5 mg/dL (8.5-10.1); CHLORIDE 105 mmol/L (98-107); CO2 30 mmol/L (21-32); CREATININE 0.9 mg/dL (0.55-1.3); GLUCOSE,RANDOM 104 mg/dL (74-106); POTASSIUM 4.6 mmol/L (3.5-5.1); SODIUM 142 mmol/L (136-145)
[2017-11-05 08:40] VITALS: BP 140/83; PULSE 59; TEMP 98.5
[2017-11-05] MEDS ORDERED: ERTAPENEM SODIUM 1 GM/50 ML PRE-DOCKED IVPB SCH (10:15)
[2017-11-05] MEDS ORDERED: ERTAPENEM SODIUM 1 GM in SODIUM CHLORIDE 50 ML IVPB SCH (10:30)
--- NOTE | 2017-11-05 10:57 | PN ---
Progress Note (short form) - Note Progress Note: doing well no fevers since Sunday night Vital Signs Period Temp Pulse Resp BP Sys/Mitchell Pulse Ox Last 24 Hr 98.2 F-99.4 F 58-66 20-20 134-140/75-83 96-99 cor-rrr lungs clar abd soft,nt ext no edema CBC, BMP 11/05/17 06:10 11/05/17 06:10 Microbiology 11/02/17 12:05 Blood - Peripheral Venous Blood Culture - Preliminary NO GROWTH OBTAINED AFTER 72 HOURS, INCUBATION TO CONTINUE FOR 2 DAYS. 11/02/17 11:45 Blood - Peripheral Venous Blood Culture - Preliminary NO GROWTH OBTAINED AFTER 72 HOURS, INCUBATION TO CONTINUE FOR 2 DAYS. 11/02/17 12:10 Urine - Urine Clean Catch Urine Culture - Final Escherichia Coli Esbl [employer] a/p ecoli esbl UTI day #3 antibiotics switch to ertapenem plan to complete 10 days via picc line plese call back if needed d/w dr hong Problem List - Problems (1) Sepsis Code(s): A41.9 - SEPSIS, UNSPECIFIED ORGANISM (2) UTI (urinary tract infection) Code(s): N39.0 - URINARY TRACT INFECTION, SITE NOT SPECIFIED (3) History of ESBL E. coli infection Code(s): Z86.19 - PERSONAL HISTORY OF OTHER INFECTIOUS AND PARASITIC DISEASES (4) H/O prostatectomy Code(s): Z90.79 - ACQUIRED ABSENCE OF OTHER GENITAL ORGAN(S)
--- NOTE | 2017-11-05 11:41 | PN ---
Progress Note (short form) - Note Progress Note: Renal follow up for Renal Cysts Pt seen and examined at the bedside awake and alert no acute complaints no sob, cp, abd pain, N/V/D Vital Signs Temperature 98.5 F 11/05/17 08:40 Pulse Rate 59 L 11/05/17 08:40 Respiratory Rate 20 11/05/17 08:40 Blood Pressure 140/83 11/05/17 08:40 O2 Sat by Pulse Oximetry (%) 99 11/05/17 09:00 Intake & Output 11/02/17 11/03/17 11/04/17 11/05/17 23:59 23:59 23:59 23:59 Intake Total 3000 1700 3300 1300 Output Total 200 Balance 2800 1700 3300 1300 Weight 71.668 kg NAD No LE edema CBC, BMP 11/05/17 06:10 11/05/17 06:10 Current Medications Acetaminophen (Tylenol -) 1,000 mg PO Q6H PRN PRN Reason: PAIN OR FEVER Heparin Sodium (Porcine) (Heparin -) 5,000 unit SQ TID [facility] Last Admin: 11/05/17 06:56 Dose: 5,000 unit Sodium Chloride (Normal Saline -) 1,000 mls @ 100 mls/hr IV ASDIR [facility] Last Admin: 11/04/17 17:09 Dose: 100 mls/hr Ertapenem 1 gm/ Sodium (Chloride) 50 mls @ 100 mls/hr IVPB DAILY [facility] Last Admin: 11/05/17 11:20 Dose: 100 mls/hr Morphine Sulfate (Morphine Sulfate) 2 mg IVPUSH Q4H PRN PRN Reason: PAIN LEVEL 6-10 67 year old gentleman with Hx of prostate ca s/p prostate resection w/ o radiation or chemotherapy, diverticulosis who presented UTI/Pylonephritis and found to have multilple cysts on both kidneys. #Acquired Renal Cystic Disease #UTI/Cystitis #Prostate Ca s/p recent resection Official read of CT shows no masses and simple cysts no debris or perinephric fluid seen as well continue Abx as per ID will need outpatient surveillance of renal cysts renal function is normal Will sign off at this time pleae re-consult as needed Thank you Mor Frias DO
[2017-11-05] MEDS ORDERED: CALCIUM CARBONATE 650 MG TABLET PO PRN (11:47)
[2017-11-05] MEDS ORDERED: CALCIUM (OYSTER SHELL) 500 MG TABLET (FP) PO SCH (12:00)
[2017-11-05] MEDS ORDERED: CALCIUM CARBONATE 650 MG TABLET PO SCH (12:45)
[2017-11-05] MEDS ORDERED: PICC LINE 8 ML FLUSH PROTOCOL IVPUSH PRN (14:31)
--- NOTE | 2017-11-05 14:52 | DS ---
Physical Exam: SUBJECTIVE: Patient seen and examined at bedside no complaints spoke to both daughters today both at bedside OBJECTIVE: Vital Signs Period Temp Pulse Resp BP Sys/Mitchell Pulse Ox Last 24 Hr 98.2 F-99.4 F 58-66 20-20 134-140/75-83 96-99 PHYSICAL EXAM GENERAL: Awake, alert, and fully oriented, in no acute distress. HEAD: Normal with no signs of trauma. EYES: Pupils equal, round and reactive to light, extraocular movements intact, sclera anicteric EARS, NOSE, THROAT: moist mucous membranes. NECK: no JVD appreciated LUNGS: clear on the right. Left side sound louder and has faint crackles at the bases HEART: Regular rate and rhythm, normal S1 and S2 soft 2/6 murmur LUSB ABDOMEN: Soft, nontender abdomen, normoactive bowel sounds. no suprapubic tenderness MUSCULOSKELETAL: no CVa tenderness UPPER EXTREMITIES: warm, well-perfused. No peripheral edema. LOWER EXTREMITIES: warm, well-perfused. No calf tenderness. No peripheral edema. NEUROLOGICAL: Cranial nerves II-XII intact. SKIN: Warm, dry LABS Laboratory Results - last 24 hr 11/05/17 11/05/17 06:10 06:10 WBC 7.1 RBC 4.72 Hgb 13.3 Hct 40.1 MCV 84.9 MCH 28.1 MCHC 33.1 RDW 13.3 Plt Count 190 MPV 9.5 Absolute Neuts (auto) 4.5 Neutrophils % 63.3 Lymphocytes % 19.5 D Monocytes % 14.1 H Eosinophils % 2.8 D Basophils % 0.3 Nucleated RBC % 0 Sodium 142 Potassium 4.6 Chloride 105 Carbon Dioxide 30 Anion Gap 7 L BUN 12 Creatinine 0.9 Creat Clearance w eGFR > 60 Random Glucose 104 Calcium 8.5 HOSPITAL COURSE: Date of Admission:11/02/17 Date of Discharge: 11/05/17 67M with history of prostate Ca s/p radiacl prostatectomy in august of this year presents to the ER with pyelonephritis found to be ESBL. Per patient and his family he had a UTI with ESBL a month prior to presentation and was treated with Macrobid. He then started having suprapubic and back pain which progressed to dyruria fevers and chills. He was seen by ID, treated with IV meropenem, and transitioned to ertapenem. UCx grew ESBL E. coli. Will go home with a PICC line and Ertapenem 1gm daily for 7 days. Minutes to complete discharge: 35 Discharge Summary Reason For Visit: PYELONEPHRITIS Current Active Problems CA of prostate (Acute) H/O prostatectomy (Acute) History of ESBL E. coli infection (Acute) Pyelonephritis (Acute) Renal cyst (Acute) Sepsis (Acute) UTI (urinary tract infection) (Acute) Condition: Improved - Instructions Diet, Activity, Other Instructions: you were found to have a urinary tract infection and you were treated for pyelonephritis with IV Antibiotics. you were treated with Meropenem then converted to Ertapenem Your urine showed ESBL E.Coli If you have worsening symptoms fever or chills go to the nearest emergency room You should have labs done in 1 week and results sent to your primary care doctor. It was a pleasure caring for you Please follow up with your primary care doctor within [address] Thomas Busch Referrals: ON STAFF,NOT [Primary Care Provider] - 1 Week Disposition: VNS/HOME HEALTH CARE - Home Medications Comprehensive Discharge Medication List: Ambulatory Orders Sildenafil Citrate [Sildenafil] 20 mg PO ASDIR 11/02/17 Ertapenem Sodium [Ertapenem] 1 gm IJ DAILY #7 vial 11/05/17 Miscellaneous Drug Not In Syst [Outpatient Lab Test] 1 each ASDIR #1 misc This patient is new to me today: No Emergency Visit: Yes ED Registration Date: 11/02/17 Care time: The patient presented to the Emergency Department on the above date and was hospitalized for further evaluation of their emergent condition. Critical Care patient: No - Discharge Referral Referred to [facility] Med P.C.: No
--- NOTE | 2017-11-05 15:16 | PN ---
Teaching Attending Note Name of Resident: Thomas Busch ATTENDING PHYSICIAN STATEMENT I saw and evaluated the patient. I reviewed the resident's note and discussed the case with the resident. I agree with the resident's findings and plan as documented. SUBJECTIVE: Patient has no complaints. OBJECTIVE: Vital Signs Period Temp Pulse Resp BP Sys/Mitchell Pulse Ox Last 24 Hr 98.2 F-99.4 F 58-66 20-20 134-140/75-83 96-99 HEART: S1S2, RRR LUNGS: Clear ABDOMEN: Soft, non-tender, non-distended, normal BS EXTREMITIES: No edema Laboratory Results - last 24 hr 11/05/17 11/05/17 06:10 06:10 WBC 7.1 RBC 4.72 Hgb 13.3 Hct 40.1 MCV 84.9 MCH 28.1 MCHC 33.1 RDW 13.3 Plt Count 190 MPV 9.5 Absolute Neuts (auto) 4.5 Neutrophils % 63.3 Lymphocytes % 19.5 D Monocytes % 14.1 H Eosinophils % 2.8 D Basophils % 0.3 Nucleated RBC % 0 Sodium 142 Potassium 4.6 Chloride 105 Carbon Dioxide 30 Anion Gap 7 L BUN 12 Creatinine 0.9 Creat Clearance w eGFR > 60 Random Glucose 104 Calcium 8.5 Current Medications Generic Name Dose Route Start Last Admin Trade Name Freq PRN Reason Stop Dose Admin Acetaminophen 1,000 mg 11/02/17 14:43 Tylenol - PO Q6H PRN PAIN OR FEVER Calcium Carbonate 650 mg 11/05/17 12:45 11/05/17 13:17 Calcium Carbonate - PO 650 mg BID [facility] Administration Heparin Sodium (Porcine) 5,000 unit 11/02/17 22:00 11/05/17 13:16 Heparin - SQ 5,000 unit TID [facility] Administration IV Flush 8 ml 11/05/17 14:31 Picc Line Flush IVPUSH PRN PRN Protocol Sodium Chloride 1,000 mls @ 100 mls/hr 11/02/17 14:00 11/04/17 17:09 Normal Saline - IV 100 mls/hr ASDIR [facility] Administration Ertapenem 1 gm/ Sodium 50 mls @ 100 mls/hr 11/05/17 10:30 11/05/17 11:20 Chloride IVPB 100 mls/hr DAILY [facility] Administration ASSESSMENT AND PLAN: This is a 67 year old man with a history of prostate cancer, prostatectomy, recent UTI who presented to the ED with suprapubic and back pain, fever, chills , urinary frequency. 1. Sepsis secondary to ESBL (+) E. coli UTI/acute pyelonephritis - Renal US shows 9 cm left renal cortical cyst, 4.4 cm right renal cortical cyst - CT abdomen/pelvis shows bilateral renal cysts - Merrem changed to Invanz - PICC insertion to complete Invanz as outpatient 2. Prostate cancer, history of radical prostatectomy 3. Renal cysts - Outpatient follow up
== END 2017-11-05 17:10 | disposition home health service (06) | DRG 872 ==
LOC: JER 11:02 → JERBED 12:25 → J6S 15:10
PROVIDERS: ADMIT Internal Medicine; ATTEND Internal Medicine
DX: A41.9 Sepsis, unspecified organism (principal); N12 Tubulo-interstitial nephritis, not specified as acute or chronic; E87.2 Acidosis; C61 Malignant neoplasm of prostate; Z90.79 Acquired absence of other genital organ(s); R07.89 Other chest pain; N52.31 Erectile dysfunction following radical prostatectomy; Z16.12 Extended spectrum beta lactamase (ESBL) resistance; N28.1 Cyst of kidney, acquired
CPT/HCPCS: 36415; 36569; 71045-TC-FY; 74177-TC; 76775-TC; 76856-TC; 77001-TC-FY; 80048; 80053; 81003; 82803; 83605; 83735; 84100; 84484; 85025; 85610; 85730; 86850; 86900; 86901; 87040; 87086; 87186; 90670; 93005; 93010; 97116-GP; 97161-GP; 99284-25; C1751; J0131; J1644; J7030